=== PATIENT | male | born 1955 | race Caucasian/White ===

== ENCOUNTER → 2020-03-23 17:29 | Outpatient (CLI) | payer OTHER, SELFPAY ==
[2020-03-23 18:28] LABS: Chloride 101 mmol/L (98-107); Sodium 138 mmol/L (136-145)
[2020-03-23 18:29] LABS: Potassium 4.3 mmoL/L (3.5-5.1)
[2020-03-23 18:31] LABS: Alanine Aminotransferase 53 U/L (12-78); Albumin Level 4.5 g/dl (3.5-5.0); Albumin/Globulin Ratio 1.6 (1.1-1.8); Alkaline Phosphatase 78 U/L (38-126); Anion Gap 16.3 mEq/L (5-15); Aspartate Amino Transferase 48 U/L (17-59); Bilirubin,Total 0.8 mg/dl (0.2-1.3); Blood Urea Nitrogen 17 mg/dl (9-20); Carbon Dioxide 25 mmol/L (22.0-30.0); Estimated Glomerular Filt Rate 75 ml/min (>60); GFR (African American) 91 ML/MIN (>60); Globulin 2.9 g/dL (1.3-3.2); Total Protein,Serum 7.4 g/dl (6.3-8.2)
[2020-03-23 18:32] LABS: Glucose 107 mg/dl (74-100)
[2020-03-23 20:54] LABS: Hemoglobin A1C 7.5 % (4.0-6.0)
== END ==
PROVIDERS: Visit Provider Family Medicine
DX: E11.65 Type 2 diabetes mellitus with hyperglycemia (principal)
CPT/HCPCS: 80053; 83036

== ENCOUNTER → 2020-09-11 17:28 | Outpatient (CLI) | payer OTHER, SELFPAY ==
[2020-09-11 17:48] LABS: Basophils % 0.7 % (0.1-2.0); Eosinophils # 0.1 K/mm3 (0.0-0.4); Eosinophils % 1.6 % (0.1-12.0); Hematocrit 38.2 % (42.0-52.0); Hemoglobin 13.1 g/dL (14.1-18.0); Lymphocytes # 2.2 K/mm3 (0.7-4.5); Lymphocytes % 38.5 % (10-50); Mean Corpuscular HGB Conc 34.2 g/dL (31.8-35.4); Mean Corpuscular Hemoglobin 31.2 pg (27.0-31.2); Mean Corpuscular Volume 91.4 fl (80-94); Mean Platelet Volume 8.4 fl (7.4-10.4); Monocytes # 0.4 K/mm3 (0.1-1.0); Monocytes % 6.8 % (1.7-9.3); Neutrophils % 52.4 % (37.0-80.0); Platelet Count 176 K/mm3 (142-424); Red Blood Count 4.18 M/mm3 (4.60-6.20); Red Cell Distribution Width 14.5 % (11.5-17.5); White Blood Count 5.8 K/mm3 (4.8-10.8)
[2020-09-11 18:06] LABS: Hemoglobin A1C 6.5 % (4.0-6.0)
[2020-09-11 18:23] LABS: Chloride 107 mmol/L (98-107); Potassium 4.1 mmoL/L (3.5-5.1); Sodium 140 mmol/L (136-145)
[2020-09-11 18:26] LABS: Alanine Aminotransferase 41 U/L (12-78); Albumin Level 4.6 g/dl (3.5-5.0); Albumin/Globulin Ratio 1.6 (1.1-1.8); Alkaline Phosphatase 46 U/L (38-126); Anion Gap 11.1 mEq/L (5-15); Aspartate Amino Transferase 39 U/L (17-59); Bilirubin,Total 0.5 mg/dl (0.2-1.3); Blood Urea Nitrogen 26 mg/dl (9-20); Carbon Dioxide 26 mmol/L (22.0-30.0); Estimated Glomerular Filt Rate 55 ml/min (>60); GFR (African American) 67 ML/MIN (>60); Globulin 2.9 g/dL (1.3-3.2); Glucose 124 mg/dl (74-100); Total Protein,Serum 7.5 g/dl (6.3-8.2)
== END ==
PROVIDERS: Visit Provider Family Medicine
DX: I25.10 Atherosclerotic heart disease of native coronary artery without angina pectoris (principal); I42.9 Cardiomyopathy, unspecified; E11.9 Type 2 diabetes mellitus without complications; Z79.84 Long term (current) use of oral hypoglycemic drugs
CPT/HCPCS: 80053; 83036; 85025

== ENCOUNTER → 2021-06-29 18:39 | Outpatient (CLI) | payer OTHER, SELFPAY ==
[2021-06-29 18:48] LABS: Basophils # 0.1 K/mm3 (0-0.2); Basophils % 0.4 % (0.1-2.0); Hematocrit 37.5 % (42.0-52.0); Hemoglobin 12.9 g/dL (14.1-18.0); Lymphocytes # 1.3 K/mm3 (0.7-4.5); Lymphocytes % 5.7 % (10-50); Mean Corpuscular HGB Conc 34.4 g/dL (31.8-35.4); Mean Corpuscular Hemoglobin 30.8 pg (27.0-31.2); Mean Corpuscular Volume 89.4 fl (80-94); Mean Platelet Volume 9.7 fl (7.4-10.4); Monocytes # 0.5 K/mm3 (0.1-1.0); Monocytes % 2.3 % (1.7-9.3); Neutrophils # 19.8 K/mm3 (1.8-7.8); Neutrophils % 91.4 % (37.0-80.0); Platelet Count 286 K/mm3 (142-424); Red Cell Distribution Width 14.1 % (11.5-17.5); White Blood Count 21.6 K/mm3 (4.8-10.8)
[2021-06-29 18:51] LABS: MANUAL DIFFERENTIAL MANUAL DIFFERENTIAL (MANUAL DIFF)
[2021-06-29 19:15] LABS: Lymphocytes % 12 % (10-50); Monocytes % 3 % (2-9); Neutrophils % 85 % (42-76); Platelet Estimate Normal; RBC Morphology Normal; Total Cells Counted 100
== END ==
PROVIDERS: Visit Provider Family Medicine
DX: U07.1 COVID-19 (principal)
CPT/HCPCS: 85007; 85025